=== PATIENT | female | born 1960 | race Caucasian/White ===

== ENCOUNTER 2024-02-06 15:10 | Outpatient (CLI) | payer OTHER, SELFPAY ==
--- OUTSIDE RECORDS SUMMARY | 2024-02-06 15:13 | XMS_ITS | Data Portability ---
Author Name Unknown Address [address] [place] [address] Phone [phone] Organization [place] [facility], [facility] Address [address] [place] [address] Care Team Providers Care Kiln Loader Name Role Phone DENYS CEDENO Referring Provider [phone] Assessment Encounter Date Assessment Date Assessment LastModified by Organization Details LastModified Time 07/31/2016 07/31/2016 I spent a considerable amount of time discussing the diagnoses, treatment options, risks and benefits of various treatment options, prognosis and the need for compliance. I also reviewed patients systemic health history, social and personal history and current medications and the complete documentation of the same is available for review in the patient's electronic health record. Based on the evaluation today, I do consider patient's symptoms to be consistent for a Temporomandibular joint disorder diagnosis. Contributing factors identified and discussed include oral parafunctional habits, postural factors, unilateral chewing. A panoramic radiograph was obtained in the office today and finding on the radiograph was discussed with the patient. This screening imaging revealed Bilateral TMJ advanced osteoarthritic changes. Overall, the dento-alveolar tissue appeared WNL. I reviewed some self care strategies with the patient today. This included the use of moist-heat therapy on a regular basis, eating a soft diet and chewing bilaterally simultaneously. the technique in keeping the jaw relaxed at all times with the teeth apart and tongue resting on the roof of the mouth was demonstrated and discussed. Patient was also educated on the significance of compliance to self-care today. I recommended evaluation and treatment with a physical therapist to improve pain-free range of motion and function. Physical therapy strategies of exercises and modalities and the value of those were discussed with the patient. As a part of PT, iontophoresis with Dexamethasone 4 mg/ml twice a week for three weeks will be considered. Fabrication of a Mandibular wtyf-[id number]-ewx l appliance to address patient's diagnoses would be considered as a part of the treatment plan. The goals with the use of an intra-oral appliance was discussed with the patient today. Patient will discuss this with her dentist first. Patient has significant left sided cervicalgia and this would need to be addressed along with TMD. Total visit time 50 minutes. I spent 40 minutes on counselling and co-ordination of care. Not available 07/31/2016 15:53:56 08/28/2016 08/28/2016 Symptoms are consistent with TMD diagnosis. IO improved to 37 mm without pain or noise after therapy. Patient will benefit from PT to decrease pain and increase function with eating and joint protection. Contributing factors include muscle guarding, oral habits, stress and poor posture. Treatment will include exercises to release muscle tension and increase strength and stability. Modalities to be used may include manual therapy, iontophoresis, ultrasound and electrical stimulation. Frequency will be 2x/3 weeks for ionto then 1x/1-2 weeks for 2-4 weeks, tapering as able for a total of 12-16 visits over 3 months. [email or web address] Not available 08/28/2016 17:54:25 09/02/2016 09/02/2016 Continue with al l goals. IO improved to 41 mm without pain or noise after therapy. Opening is more controlled today. Doing better due to improved awareness and joint protection. [email or web address] Not available 09/02/2016 13:36:00 09/05/2016 09/05/2016 IO improved to 4 0 mm max, 38 without pain or noise after therapy. Overall the jaw is feeling better and more stable. Good exercise compliance, will benefit from adding heat at home when she can. Continue with all goals. [email or web address] Not available 09/05/2016 10:10:12 09/09/2016 09/09/2016 IO improved to 4 1 mm max with slight L deviation, 39 without pain or deviation after therapy. Overall the jaw is feeling better and more stable. Added lateral dynamic work with the tube to improve endurance and control. Good exercise compliance and ROM improvement. [email or web address] Not available 09/10/2016 09:30:08 09/16/2016 09/16/2016 I reinforced the self-care strategies and encouraged compliance with those. I reviewed outcomes from the visits with PT. I recommended continued care with the physical therapist with focus on maintaining pain-free ROM. Patient also notices improvement in neck pain following the iontophoresis with dexamethasone for her TMD related osteoarthritis. AT the time of the follow-up visit, splint therapy may be considered. I discussed the outcomes of those visits with the rendering team provider. Total visit time 20 minutes. I spent 15 minutes on counselling and co-ordination of care. Not available 09/16/2016 15:53:39 09/16/2016 09/16/2016 Patient has met all short term goals. IO improved to 42 mm max with slight L deviation, 39 without pain or deviation after therapy. Overall the jaw is feeling better and more stable. Adjusted lateral dynamic work with the tube to improve endurance and control. Good exercise compliance and ROM improvement. 1 more ionto visit remaining, then taper therapy to 1-2 week followup. Check chin tucks next, progress postural exercises as needed. [email or web address] Not available 09/16/2016 17:46:08 10/23/2016 10/23/2016 Patient continue s to meet all short term goals and has nearly met all moth exterminator goals. Taper to independent management and D/C if she does not need to return for treatment. Function is back to normal per patient and strength and ROM is WFL. [email or web address] Not available 10/23/2016 18:17:53 Plan of Treatment Reminders Order Date Submit Date Provider Last Modified By Organization Details Last Modified Time Details Appointments None recorded. Lab None recorded. Referral physical therapist referral 2015 0[address] [facility], [address], [place], [address], 6 04:40:54 Procedures None recorded. Surgeries None recorded. Imaging XR, orthopantog ulciana 2015 016 [facility], [address], [address], [place], [address], 6 04:40:54 Medication Orders None recorded. Patient Targets Encounter Date Encounter Id Patient Goals Patient Target Last Modified By Organization Details Last Modified Time To be met in 3 weeks:? Improve patient? s awareness of muscle tension and muscle guarding habits to decrease pain? Improve patient? s awareness of neutral head, neck and jaw, position to improve posture? Improve jaw ROM to _35___mm IO without pain or deviation, with minimal noise due to decreased inflammation? Decrease pain and noise level by 50% due to improved joint protection and decreased inflammationTo be met in 3 months: ? Neutral head, neck, and jaw posture 80% of the time? Improve jaw ROM to _35-40___mm IO and __7-10___mm lateral excursion without noise or pain, with good mechanics? Decrease noise and pain level by 90% due to improved joint strength and stability? Addison with HEP and self care strategies to manage symptoms? Pain free chewing with moderately hard diet 80% of the time [email or web address] Not available 10/23/2016 09:37:41 To be met in 3 weeks:? Improve patient? s awareness of muscle tension and muscle guarding habits to decrease pain? Improve patient? s awareness of neutral head, neck and jaw, position to improve posture? Improve jaw ROM to _35___mm IO without pain or deviation, with minimal noise due to decreased inflammation? Decrease pain and noise level by 50% due to improved joint protection and decreased inflammationTo be met in 3 months: ? Neutral head, neck, and jaw posture 80% of the time? Improve jaw ROM to _35-40___mm IO and __7-10___mm lateral excursion without noise or pain, with good mechanics? Decrease noise and pain level by 90% due to improved joint strength and stability? Addison with HEP and self care strategies to manage symptoms? Pain free chewing with moderately hard diet 80% of the time [email or web address] Not available 09/16/2016 09:37:24 To be met in 3 weeks:? Improve patient? s awareness of muscle tension and muscle guarding habits to decrease pain? Improve patient? s awareness of neutral head, neck and jaw, position to improve posture? Improve jaw ROM to _35___mm IO without pain or deviation, with minimal noise due to decreased inflammation? Decrease pain and noise level by 50% due to improved joint protection and decreased inflammationTo be met in 3 months: ? Neutral head, neck, and jaw posture 80% of the time? Improve jaw ROM to _35-40___mm IO and __7-10___mm lateral excursion without noise or pain, with good mechanics? Decrease noise and pain level by 90% due to improved joint strength and stability? Addison with HEP and self care strategies to manage symptoms? Pain free chewing with moderately hard diet 80% of the time [email or web address] Not available 09/09/2016 09:33:04 To be met in 3 weeks:? Improve patient? s awareness of muscle tension and muscle guarding habits to decrease pain? Improve patient? s awareness of neutral head, neck and jaw, position to improve posture? Improve jaw ROM to _35___mm IO without pain or deviation, with minimal noise due to decreased inflammation? Decrease pain and noise level by 50% due to improved joint protection and decreased inflammationTo be met in 3 months: ? Neutral head, neck, and jaw posture 80% of the time? Improve jaw ROM to _35-40___mm IO and __7-10___mm lateral excursion without noise or pain, with good mechanics? Decrease noise and pain level by 90% due to improved joint strength and stability? Addison with HEP and self care strategies to manage symptoms? Pain free chewing with moderately hard diet 80% of the time [email or web address] Not available 09/05/2016 09:43:30 To be met in 3 weeks:? Improve patient? s awareness of muscle tension and muscle guarding habits to decrease pain? Improve patient? s awareness of neutral head, neck and jaw, position to improve posture? Improve jaw ROM to _35___mm IO without pain or deviation, with minimal noise due to decreased inflammation? Decrease pain and noise level by 50% due to improved joint protection and decreased inflammationTo be met in 3 months: ? Neutral head, neck, and jaw posture 80% of the time? Improve jaw ROM to _35-40___mm IO and __7-10___mm lateral excursion without noise or pain, with good mechanics? Decrease noise and pain level by 90% due to improved joint strength and stability? Addison with HEP and self care strategies to manage symptoms? Pain free chewing with moderately hard diet 80% of the time [email or web address] Not available 09/02/2016 09:45:09 To be met in 3 weeks:? Improve patient? s awareness of muscle tension and muscle guarding habits to decrease pain? Improve patient? s awareness of neutral head, neck and jaw, position to improve posture? Improve jaw ROM to _35___mm IO without pain or deviation, with minimal noise due to decreased inflammation? Decrease pain and noise level by 50% due to improved joint protection and decreased inflammationTo be met in 3 months: ? Neutral head, neck, and jaw posture 80% of the time? Improve jaw ROM to _35-40___mm IO and __7-10___mm lateral excursion without noise or pain, with good mechanics? Decrease noise and pain level by 90% due to improved joint strength and stability? Addison with HEP and self care strategies to manage symptoms? Pain free chewing with moderately hard diet 80% of the time [email or web address] Not available 08/29/2016 09:38:39 Patient Instructions Encounter Date Encounter Id Patient Instructions Last Modified By Organization Details Last Modified Time 10/23/2016 [id number] Plan: Continue independently, RTC as needed only. D/C PT if she doesn't return. [email or web address] Not available 10/23/2016 18:18:12 09/16/2016 [id number] Plan: One more session of ionto 80 mAmin with heat. Check exercises, mobilize jaw, check chin tuck, add cervical stretches as needed. [email or web address] Not available 09/16/2016 10:03:33 09/09/2016 [id number] Plan: Check neck next, increase to 80 mAmin with ionto. Check exercises, mobilize jaw, add #6B when able. [email or web address] Not available 09/10/2016 09:30:23 09/05/2016 [id number] Plan: Check neck next, increase to 70 mAmin with ionto. Check exercises, mobilize jaw. [email or web address] Not available 09/05/2016 09:51:53 09/02/2016 [id number] Plan: Check neck next, increase to 60 mAmin with ionto. Check exercises, mobilize jaw. [email or web address] Not available 09/02/2016 10:07:28 08/28/2016 [id number] Plan: Primary MD signature: Date: [email or web address] Not available 08/28/2016 10:10:21 07/31/2016 [id number] Self Care for TMD [id number] Not available 10/05/2016 04:40:54 Reason for Referral Referring Physician: Kenton Allen, Pain Management, Encounter Date: 07/31/2016 Results Created Date Observation Date Name Description Value Unit Range Abnormal Flag LastModifiedBy Organization Detail LastModifiedTime Result Notes None recorded. 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 Procedures Surgical History Date Name Laterality Status Provider Name and Address Organization Details Recorded Time 10/23/19 17 17051: Therapeutic Exercise completed Christel licona [facility] 10/23/2016 18:15:04 10/23/19 17 66774: Therapeutic Activities completed Christel licona [facility] 10/23/2016 18:15:15 09/16/20 16 31451: Iontophoresis completed Christel licona [facility] 09/16/2016 10:02:15 09/16/20 16 19263: Therapeutic Exercise completed Christel licona [facility] 09/16/2016 09:37:24 09/16/20 16 94961: Manual Therapy completed Christel licona [facility] 09/16/2016 09:37:24 09/09/20 16 53960: Iontophoresis completed Christel licona [facility] 09/09/2016 09:49:36 09/09/20 16 62207: Therapeutic Exercise completed Christel licona [facility] 09/09/2016 09:33:04 09/09/20 16 32818: Manual Therapy completed Christel licona [facility] 09/09/2016 09:33:04 09/05/20 16 25772: Iontophoresis completed Christel licona [facility] 09/05/2016 09:50:03 09/05/20 16 10402: Therapeutic Exercise completed Christel licona [facility] 09/05/2016 09:43:29 09/05/20 16 05974: Manual Therapy completed Christel licona [facility] 09/05/2016 09:50:07 09/02/20 16 52654: Iontophoresis completed Christel licona [facility] 09/02/2016 09:51:11 09/02/20 16 25051: Therapeutic Exercise completed Christel licona [facility] 09/02/2016 09:37:37 09/02/20 16 50373: Manual Therapy completed Christel licona [facility] 09/02/2016 13:35:11 08/28/20 16 74521: PT Evaluation completed Christel licona [facility] 08/28/2016 11:10:25 08/28/20 16 23745: Iontophoresis completed Christel licona [facility] 08/28/2016 17:50:03 08/28/20 16 51848: Therapeutic Exercise completed Christel licona [facility] 08/28/2016 10:10:23 08/28/20 16 75494: Manual Therapy completed Christel licona [facility] 08/28/2016 17:50:17 Imaging Results None recorded. Procedure Notes None recorded. Medical Equipment None Reported. Allergies No known drug allergies Medications Name Sig Start Date Stop Date Status Note LastModified by Organization Details LastModified Time amoxicillin 500 mg capsule 2015 completed Not Available Not Available Not Available hydrocodone 5 mg-acetaminop hen 325 mg tablet 2015 completed Not Available Not Available Not Available Advair Diskus 250 mcg-50 mcg/dose powder for inhalation active Not Available Not Available N ot Available ProAir HFA 90 mcg/actuation aerosol inhaler active Not Available Not Available Not Available Cyclafem (28) 0.5 mg/0.75 mg/1 mg-35 mcg tablet 2015 completed Not Available Not Available Not Available Jublia 10 % topical solution with applicator active Not Available Not Available N ot Available Vitals Date Recorded Body height Body weight Body mass index (BMI) Heart rate Systolic blood pressure Diastolic blood pressure Provider Name and Address Organization Details Last Updated DateTime 6 161.29 cm 10247.9 3 g 24.4 kg/m2 68 /min 117 mm[Hg] 72 mm[Hg] Alma licona [facility] 6 10:13:09 Date Recorded Heart rate Systolic blood pressure Diastolic blood pressure Provider Name and Address Organization Details Last Updated DateTime 07/31/2016 82 /min 132 mm[Hg] 79 mm[Hg] Janet licona [facility] 07/31/2016 10:50:40 Social History Question Answer Notes LastModified by Organizat ion Details LastModified Time Tobacco Smoking Status Never Smoker Janet licona [facility] 07/31/2016 10:35:17 What Is Your Level Of Alcohol Consumption? Occasional Information not available 07/31/2016 Auto Related Injury? No Information not available 07/31/2016 What Is Your Level Of Caffeine Consumption? Moderate Information not available 07/31/2016 Are You Currently Employed? Yes Information not available 07/31/2016 Currently No Information not available 07/31/2016 What Type Of Diet Are You Following? REGULAR Information not available 07/31/2016 Do You Reside In Or Have You Traveled To An Area Where Ebola Virus Transmission Is Active? 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 (0=no Pain, 10=pain As Bad As You Can Imagine) 1 Information not available 07/31/2016 How Did Primary Problem Begin? Eating/large Bite Information not available 07/31/2016 How Many Children Do You Have? 3 Information not available 07/31/2016 General Stress Level Low Information not available 07/31/2016 Do You Use Any Illicit Or Recreational Drugs? No Information not available 07/31/2016 Work Related Injury? No Information not available 07/31/2016 Sex: Female Functional Status Question Answer Note LastModified by Organizat ion Details LastModified Time What is your exercise level? Occasional Information not available 07/31/2016 Mental Status None recorded. Family History Relationship Description Onset Age of this Age Resolved Age Notes Mother Arthritis Father Heart disease Medical History Condition Response Coronary Artery Disease N Other N Gout N MRSA N Head Trauma/Injury N Lung Disease N Glaucoma N Depression N COPD N Pneumonia N Pacemaker N Obstructive Sleep Apnea N Anxiety Disorder N Muscle, Joint, or Bone Problems N Autoimmune disease N Vision or Eye Problems N Arthritis N Acid Reflux (GERD) N Cancer N Stroke N Back Injury N High Cholesterol N Liver Disease N Organ Transplant N Rheumatoid Arthritis N Headaches N Fibromyalgia N Kidney Disease N Allergies/Hayfever N Post traumatic stress disorder (PTSD) N Parkinson's Disease N Migraines N Brain Tumors N Anemia N Multiple Sclerosis N Heart Attack ([place]) N Stomach Ulcers N Diabetes N Bleeding Disorder N Seizures/Epilepsy N Tuberculosis N AIDS/HIV N Dementia N Asthma N Substance Abuse N Vertigo N Sleep Disorder N Hepatitis N Neuropathy N Heart Disease N Pulmonary Embolism N Hypertension N Osteoporosis N Gynecological HistoryNo gynecological history recorded. Obstetrics History GPAL:G 0 P 0 0 0 0 Past Encounters Encounter ID Performer Location Encounter Start Date Encounter Closed Date Diagnosis/Indication Diagnosis SNOMED-CT Code [id number] Florence Mane [facility] [address] [place] [id number] 07/31/2016 10:12:52 08/02/2016 00:41:35 Arthralgia of temporomandibular joint 67321653 Articular disc disorder of temporomandibular joint 09743472 Myofascial pain 03501518 9 Neck pain 35535354 [id number] Christel Tobinmat [place] [address] [address] 08/28/2016 10:07:29 08/29/2016 12:11:19 Arthralgia of temporomandibular joint 45283668 Myofascial pain 31911089 9 Articular disc disorder of temporomandibular joint 72646725 Neck pain 61884489 [id number] Christel Villa [place] [address] [place] [id number] 09/02/2016 09:25:29 09/03/2016 10:09:08 Arthralgia of temporomandibular joint 79787561 Myofascial pain 29914968 9 Articular disc disorder of temporomandibular joint 59720208 Neck pain 65007684 [id number] Christel Allen [place] [address] [address] 09/05/2016 09:18:04 09/06/2016 09:48:12 Articular disc disorder of temporomandibular joint 44467065 Neck pain 79598140 Myofascial pain 39717368 9 Arthralgia of temporomandibular joint 36196226 [id number] Christel Tobinmat [place] [address] [place] [id number] 09/09/2016 09:21:24 09/11/2016 09:51:15 Articular disc disorder of temporomandibular joint 81452290 Neck pain 92121881 Myofascial pain 99301263 9 Arthralgia of temporomandibular joint 37214312 [id number] Christel Allen [place] [address] [address] 09/16/2016 09:24:44 09/17/2016 10:49:42 Articular disc disorder of temporomandibular joint 32014266 Neck pain 22474411 Myofascial pain 46510034 9 Arthralgia of temporomandibular joint 18819400 [id number] Florence Gilliam [facility] [address] [place] [address] 09/16/2016 10:01:46 09/17/2016 09:43:56 Myofascial pain 652200170 Neck pain 68263541 Arthralgia of temporomandibular joint 21154640 Articular disc disorder of temporomandibular joint 75307454 [id number] Christel Allen [facility] [address] [place] [address] 10/23/2016 09:35:02 10/24/2016 15:17:07 Arthralgia of temporomandibular joint 92016610 Myofascial pain 69994915 9 Articular disc disorder of temporomandibular joint 52184604 Neck pain 27697919 Health Concerns Section Related Observation LastModified by Organization Detai ls LastModified Time None Recorded Concern Status LastModified by Organization Details LastModified Time None Recorded Advance Directives Directive None Recorded Payers Encounter Date Sequence Insurance Name Policy Number Policy Albarado Covered Member ID Albarado Member ID Guarantor Name 10/23/2016 1 [place] [id number] Bhavin F Strike [id number] [employer]ak[employer] Strike 09/16/2016 1 [place] [id number] Bhavin F Strike [id number] Bhakti Strike 09/16/2016 1 [place] [id number] Bhavin F Strike [id number] Bhakti Strike 09/09/2016 1 [place] [id number] Bhavin F Strike [id number] Bhakti Strike 09/05/2016 1 [place] [id number] Bhavin F Strike [id number] Bhakti Strike 09/02/2016 1 [place] [id number] Bhavin Quick Strike [id number] Bhakti Strike 08/28/2016 1 [place] [id number] Bhavin Quick Strike [id number] Bhakti Strike 07/31/2016 1 [place] [id number] Bhavin Quick Strike [id number] Bhakti Strike Notes Date Note Type Note Provider Name and Address Organization Details Recorded Time 07/31/2016 text/html HPI Notes: Lina parikh reports jaw pain on the left-side , which startedmonths ago. The pain is located in the pre-auricular region. Patient reports the severity of pain as 0-3 on a scale of 0-10 and describes the quality of the pain assharp when yawning. The pain is intermittent. Associated symptoms include deviates as she yawns. Contextual factors include nothing. Aggravating factors include yawning. Patient has tried OTC medications to alleviate symptoms, which has been effective. Past treatment includes physical therapy. BINDU Patel DDS - [facility] 07/31/2016 15:56:10 08/28/2016 text/html HPI Notes: Has h ad jaw discomfort for the past 6-9 months - had pain 6 years ago with trying to open for a sub sandwich which she had managed with some exercises. Over this past summer started having difficulty with eating and yawning again. Has a small jaw to begin with. Now has sharp, brief pain and crunching with opening and yawning. Pain is in the L masseter area. Doesn't notice clenching, no grinding at night. Is aware of chewing on cheeks, more recently - is noticing an increase in accidental cheek biting. Tongue is in the middle, is trying to keep it up and keep her alignment straight. Side and back sleeping. Has some neck tension at times - is working on stretching. Has been avoiding big foods, otherwise isn't having difficulty with chewing certain food. Stress is mostly low and doesn't seem to be a factor. Exercises regularly using elliptical, walking dog. Enjoys reading. Panorex shows advanced B degenerative OA changes of the TMJ condyles. BINDU Rico [facility] 08/29/2016 09:39:11 09/02/2016 text/html HPI Notes: Has n ot had a chance to do heat - ABBE had a stroke and last week the day of the PT eval, has been out of town since. Has been focusing on protecting opening, keeping the tongue up, minimizing extra lateral movements. Feels much more aware of the jaw wanting to slip to either side or forward. Hasn't had much pain. Opening still feels tight. Christel licona [facility] 09/02/2016 13:37:06 09/05/2016 text/html HPI Notes: Has d one the TD, no heat (no microwave). Noticing that doing the knuckle stretches will strain the jaw slightly when she's trying to pull them out - has some difficulty closing the jaw right away until it relaxes. It's not as difficult to pull the sticks out. Jaw does feel better and more stable overall, though the opening doesn't feel too much farther yet. Christel licona [facility] 09/05/2016 10:10:24 09/09/2016 text/html HPI Notes: Has h ad heat again now as of yesterday. No pain, still having tightness though it seems less tight overall. The lateral resistance exercise seems to have helped improve the balance side to side. Protecting yawning. Christel licona [facility] 09/10/2016 09:31:01 09/16/2016 text/html HPI Notes: Traveling over [facility], had a on Friday. Doing the exercises as much as possible. Can't do tube ex. without hearing noise instantly. 65-70% overall improvement. Still having soreness with eating chewy foods. No difficulty with opening wide. Discomfort/hesitati on with yawning. Neck is feeling less tight. Christel licona [facility] 09/16/2016 17:46:48 09/16/2016 text/html HPI Notes: Patie nt reports jaw pain on the left-side , which startedmonths ago. The pain is located in the pre-auricular region. Patient reports the severity of pain as 0-3 on a scale of 0-10 and describes the quality of the pain assharp when yawning. The pain is intermittent. Associated symptoms include jaw joint noises. Contextual factors include nothing. Aggravating factors include yawning. Patient has tried OTC medications to alleviate symptoms, which has been effective. Past treatment includes physical therapy.Patient states her symptoms are improving. Patient denies any locking. BINDU Patel DDS [facility] 09/16/2016 15:53:52 10/23/2016 text/html HPI Notes: Has noticed that doing chin tucks has made a big difference. Feels she is catching her posture all the time and is maintaining a good head over neck posture. With yawning she still has a little discomfort and noise but most of the time she can get a full yawn in. Eating is much better - no pain. Neck tightness seems better. Feeling 80-85% better. Feels that awareness is the most important factor. Still does some exercises; feeling ready to continue independently. BINDU Rico - [facility] 10/23/2016 18:18:42 OBGyn Episode No OBEpisode recorded.
--- OUTSIDE RECORDS SUMMARY | 2024-02-06 15:13 | XMS_ITS | Clinical Summary ---
Author Name Unknown Organization [facility] Address [address] [place] [address] Care Team Providers Care Metal Cans Supervisor Name Role Phone Rosaura Su PA-C Primary Care Provider Un available Source Comments You are receiving this document as you are listed as the primary care provider,follow-up provider, or the patient has been referred to you for consultation.This is in compliance with the Medicare and[facility] EHR Incentive Program,which states Providers who transition their patient to another setting of careor provider of care or refers their patient to another provider of care shouldprovide summary care record for each transition of care or referral. 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 Overview: Melanoma in situ, left shoulder, s/p shave 10/27/2018, s/p reexcision 11/2018 History of nonmelanoma skin cancer 2021 Overview: Per patient, history of a few NMSCs: BCC, left forehead, 05/2019, by Mary Velzaquez PA-C BCC, right buddhist, 2017 BCC, right upper chest, 10/27/2018 BCC, left upper chest, 10/27/2018 Social History Tobacco Use Types Packs/Day Years Used Date Smoking Tobacco: Never Assessed Sex and Gender Information Value Date Recorded Sex Assigned at Not on file Gender Identity Not on file Sexual Orientation Not on file Plan of Treatment Health Maintenance Due Date Last Done Comments Cervical Cancer Screening Due 1962 Colon Cancer Screening Plan Due 1962 Hep C Screening (Preventive Services) 1962 HIV Screening (Preventive Services) 1978 Adult Preventive Visit 1980 Cholesterol 2007 Mammogram 08/27/2022 08/27/2021 COVID-19 Vaccine ( season) 2023 02/13/2021, 01/23/2021 Influenza (#1) 2023 08/16/2020, 09/20, 09/03/2008, Additional history exists DTaP/Tdap/Td (3 - Tdap) 06/24/2028 06/24/2018, 09/22 Zoster/Shingles Completed 12/06/2019, 07/02/2019 HepA Aged Out No longer eligi ble based on patient's age to complete this topic HepB Aged Out No longer eligi ble based on patient's age to complete this topic Hib Aged Out No longer eligi ble based on patient's age to complete this topic IPV (Polio) Aged Out No longer eligi ble based on patient's age to complete this topic MCV4 Aged Out No longer eligi ble based on patient's age to complete this topic Pneumococcal Aged Out No longer eligi ble based on patient's age to complete this topic Procedures Procedure Name Priority Date/Time Associated Diagnosis Comments RADEX FNGR MINIMUM 2 VIEWS 04/27/1996 12:00 AM CDT Finger Injury Nos Fx Phalanx, Hand Nos-Close from Last 3 Months or Most Recently Relevant to Health Maintenance Care Teams Metal Cans Supervisor Relationship Specialty Start Date End Date Rosaura Su PA-C PCP - General Physician Teaching Fellow 05/01/21
--- OUTSIDE RECORDS SUMMARY | 2024-02-06 15:13 | XMS_ITS | Continuity of Care Document ---
Author Name [facility] Organization [facility] Care Team Providers Care Senior Bookkeeper Name Role Phone [facility] Unavailable Unavailable Medications Combined list of outpatient medications from Department of Defense and Veterans Affairs facilities.Medications provided include 1) outpatient medications from the last 15 months, and 2) patient-reported medications. Medication Details Route Status Patient Instructions Prescription Expires Prescription Number Last Dispense Date Ordering Provider Order Date Order Qty Source ALBUTEROL SULFATE HFA (albuterol sulfate), 90 MCG, HFA AER AD, INHALATION, TEVA [place], 8.5 g CANISTER Active [id number] 2023 17 Pharmac y Data Transac tion Service Facilit y WIXELA INHUB (fluticason e propionate/ salmeterol xinafoate), 250-50 MCG, BLST W/DEV, INHALATION, MYLAN, 60 ea. BLIST PACK Active [id number] 4 2023 180 Pharmac y Data Transac tion Service Facilit y WIXELA INHUB (fluticason e propionate/ salmeterol xinafoate), 250-50 MCG, BLST W/DEV, INHALATION, MYLAN, 60 ea. BLIST PACK Active [id number] 4 2023 180 Pharmac y Data Transac tion Service Facilit y WIXELA INHUB (fluticason e propionate/ salmeterol xinafoate), 250-50 MCG, BLST W/DEV, INHALATION, MYLAN, 60 ea. BLIST PACK Active [id number] 3 2022 60 Pharmac y Data Transac tion Service Facilit y Social History Combined list of available smoking, tobacco, and other social history from Department of Defense and Veterans Affairs facilities. Social History Type Response Date Comment Sourc e This section is an empty social history section. [employer]
--- OUTSIDE RECORDS SUMMARY | 2024-02-06 15:13 | XMS_ITS | Clinical Summary ---
Author Name Unknown Organization [facility] Address [place], [place] [address] Care Team Providers Care Arranger Assembler Name Role Phone Dora Oconnor DO Primary Care Provider [phone] Allergies No known active allergies Medications Medication Sig Dispensed Refills Start Date End Date Status multivitamin (MVI) tablet Take 1 Tablet by mouth once daily. 11/13/2023 Active albuterol HFA (ProAir HFA) 90 mcg/actuation inhalerIndications:Mod erate persistent asthma without complication Inhale 2 Puffs by mouth 4 times daily if needed for Shortness Of Breath or Wheezing. 18 g 11 11/13/2023 Active fluticasone propion-salmeteroL (Advair Diskus) 250-50 mcg/Dose diskus inhalerIndications:Mod erate persistent asthma without complication Inhale 1 Puff by mouth two times daily. 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 Overview: Melanoma in situ, left shoulder, s/p shave 10/27/2018, s/p reexcision 11/2018 History of nonmelanoma skin cancer 2021 Overview: Per patient, history of a few NMSCs: BCC, left forehead, 05/2019, by Mary Velazquez PA-C BCC, right alevism, 2017 BCC, right upper chest, 10/27/2018 BCC, left upper chest, 10/27/2018 Skin cancer 08/18/2018 Overview: 06/08/19 left forehead, nBCC, [facility] Renetta 09/06/19 08/13/18 right upper chest, s/n BCC ED&C treated 12/08/18 Mary Velazquez PA-C 08/13/18 left upper chest, s/n BCC, ED&C treated 12/08/18 Mary Velazquez PA-C 08/13/18 right alevism, nBCC, [facility] 11/24/18 Elliott Jackson MD Routine adult health maintenance 12/02/2014 Overview: Colonoscopy 11/2014 diverticulosis repeat in 10 years Vitamin D deficiency 04/08/2012 Unspecified asthma(493.90) 09/22/2007 Overview: Allergy induced, animal allergy Encounters Date Type Department Care Team Description 11/13/2023 9:10 AM ELEMENTARY SPANISH TEACHER Office Visit [facility] [address] [place] [address] Janet Pedersen PA Physical (Annual exam no pap) 11/13/2023 Travel from Last 3 Months Immunizations Name Administration Dates Next Due AMB Influenza, IIV4 PF (=>6 mos Flulaval,Fluzone Fluarix)(Flu Clinic Only) 08/16/2020 COVID-19 vaccine (MailTime NTCueSongs 30mcg/0.3mL) PF, MDV 02/13/2021,01/23/2021 Influenza, IIV3 (Age >=3 years) 09/03/20 08,09/22/2007,09/10/2006,2004,08/10/2004 Influenza, IIV4 10/09/2015 Pneumococcal Conj 20-valent (Prevnar 20) 05/29/2022 Tdap 06/24/2018,09/22/2007 Zoster (Shingrix-RZV, recombinant) 12/06/2019, Family History Medical History Relation Name Comments No Known Problems Daughter Other Father ulcerative coli tis Psychiatric illness Father Depressi on-- later in life Skin cancer Father Heart Disease Maternal Grandmother Stroke Maternal Grandmother Cancer-breast Mother 09-27-08 Tosin ctomy, age 71 Migraines Mother hx of Asthma Sister No Known Problems Son 1 No Known Problems Son 2 Cancer-ovarian No Family History Relation Name Status Comments Daughter Alive Father (Age 83) Maternal Grandmother Mother Alive Sister Alive Son 1 Alive Son 2 Alive Social History Tobacco Use Types Packs/Day Years Used Date Smoking Tobacco: Never Smokeless Tobacco: Never Tobacco Cessation:Counseling Given: Yes Alcohol Use Standard Drinks/Week Comments Yes 0 (1 standard drink = 0.6 oz pur e alcohol) wine occasionally PHQ-2 Answer Date Recorded PHQ-2 TOTAL SCORE 0 11/13/2023 Social Connections Answer Date Recorded Frequency of Communication with Friends and Fami ly Not on file 10/20/2021 Financial Resource Strain Answer Date R ecorded Difficulty of Paying Living Expenses Not on file 10/20/2021 Difficulty of Paying Living Expenses Not on file 10/20/2021 Sex and Gender Information Value Date Recorded Sex Assigned at Not on file Gender Identity Not on file Sexual Orientation Not on file Obstetrics History Para Term AB IAB SAB Ectopic Multiple Livin g Live Births 3 3 3 3 Date Outcome GA Total Labor Labor/2nd/3rd Weight Sex Delivery Anes PTL Sparkle A1 A5 Name Cl in Term Term Term Last Filed Vital Signs Vital Sign Reading Time Taken Comments Blood Pressure 151/82 11/13/2023 9:23 AM ELEMENTARY SPANISH TEACHER Pulse 77 11/13/2023 9:23 AM ELEMENTARY SPANISH TEACHER Temperature 36.5 ??C (97.7 ??F) 07/02/2019 8:20 AM CD T Respiratory Rate - - Oxygen Saturation 100% 11/13/2023 9:23 AM ELEMENTARY SPANISH TEACHER Inhaled Oxygen Concentration - - Weight 69.4 kg (153 lb) 11/13/2023 9:23 AM ELEMENTARY SPANISH TEACHER Height 160.1 cm (5' 3.03) 11/13/2023 9:23 AM CS T Body Mass Index 27.08 11/13/2023 9:23 AM ELEMENTARY SPANISH TEACHER Plan of Treatment Upcoming Encounters Date Type Department Care Team (Late st Contact Info) Description 02/11/2024 9:40 AM CDT Office Visit [facility] [address] [place] [address] [place] [address] Lynette Lee MD [address] [facility] [address] [place] [address] Health Maintenance Due Date Last Done Comments HIV for age 15-65 1977 COVID-19 vaccine series (2022- season) 2023 03/22/2022, 02/13/2021, 01/23/2021 Mammogram for age 45-75 05/29/2024 05/29/20 23, 08/27/2021, 08/21/2020, Additional history exists Influenza for age 50-64 06/20/2024 08/16/20 20, 10/09/2015, 09/03/2008, Additional history exists BMI (ht and wt on same day) for age 18+ 11/13/2024 11/13/2023, 05/29/2022, 02/23/2021, Additional history exists Depression screening for age 12+ 11/13/2024 11/13/2023, 12/20/2020, 07/02/2019, Additional history exists Colonoscopy through age 75 12/02/2024 12/02/2014, Pap test for age 21-65 12/20/2025 , 12/20/2020, 01/29/2017, Additional history exists Tetanus booster 06/24/2028 06/24/2018, 09/22/2007 Lipids for age 45-75 11/13/2028 11/13/2023, 12/20/2020, 07/02/2019, Additional history exists Tdap Completed 06/24/2018, 09/22/2007 Hepatitis C screening for ag e 18-79 Completed 07/02/2019 Zoster (shingles) series for age 50+ Completed 12/06/2019, 07/02/2019 Pneumococcal series for age 6-64 Completed 05/29/20 22 Procedures Procedure Name Priority Date/Time Associated Diagnosis Comments ABORH TYPE Routine 11/13/2023 10:21 AM ELEMENTARY SPANISH TEACHER Annual physical exam HEMOGLOBIN A1C SCREENING Routine 11/13/2023 10:21 AM ELEMENTARY SPANISH TEACHER Screening for diabetes mellitus COMP METABOLIC PANEL Routine 11/13/2023 10:21 AM ELEMENTARY SPANISH TEACHER Screening for diabetes mellitus LIPID PANEL W REFLEX MEASURED LDL Routine 11/13/2023 10:21 AM ELEMENTARY SPANISH TEACHER Screening for lipid disorders XR MAMMO MADDY BILAT SCREEN Routine 05/29/2023 11:43 AM CDT Encounter for screening mammogram for malignant neoplasm of breast UPHOLSTERY DEPARTMENT SUPERVISOR THIN PREP PAP SCREEN IMAGED Routine 12/20/2020 10:17 AM ELEMENTARY SPANISH TEACHER Pap smear for cervical cancer screening ANTI HCV Routine 07/02/2019 9:23 AM CDT Need for hepatitis C screening test from Last 3 Months or Most Recently Relevant to Health Maintenance Results * HEMOGLOBIN A1C SCREENING (11/13/2023 10:21 AM ELEMENTARY SPANISH TEACHER) HEMOGLOBIN A1C SCREENING 5.5 <=6.4 % 11/13/2023 5:29 PM ELEMENTARY SPANISH TEACHER [facility] Accurate Group [facility] Blood BLOOD SPECIMEN / Unknown Venipuncture / Unknown 11/13/2023 10:21 AM ELEMENTARY SPANISH TEACHER 11/13/2023 10:23 AM ELEMENTARY SPANISH TEACHER Narrative [facility] - 11/13/2023 5:29 PM ELEMENTARY SPANISH TEACHER ? (<5.7%) ?Normal ? (5.7% to 6.4%) ? Indicates prediabetes ? (>=6.5%) ? Confirms diabetes Falsely low levels may be seen with: Recent Transfusion, Recent Significant Blood Loss, Hemolytic Diseases, or Falsely elevated levels may be seen with: Untreated Anemias, Splenectomy Janet JOVEL CHEMISTRY [facility] [address] [place] [address], * (ABNORMAL) LIPID PANEL W REFLEX MEASURED LDL (11/13/2023 10:21 AM ELEMENTARY SPANISH TEACHER) CHOLESTEROL,TOTAL 251(H) 100 - 199 mg/dL 11/13/2023 9:55 PM ELEMENTARY SPANISH TEACHER [facility] Comment: Cholesterol, Total Reference Ranges Desirable <200 mg/dL Borderline 200-239 mg/dL High >=240 mg/dL TRIGLYCERIDES 55 <150 mg/dL 11/13/2023 9:55 PM ELEMENTARY SPANISH TEACHER [facility] HDL CHOLESTEROL 111 >40 mg/dL 9:55 PM ELEMENTARY SPANISH TEACHER [facility] NON-HDL CHOLESTEROL 140 <145 mg/dl 11/13/2023 9:55 PM ELEMENTARY SPANISH TEACHER [facility] CHOL/HDL RATIO 2.26 <4.50 11/13/2023 9:55 PM ELEMENTARY SPANISH TEACHER [facility] LDL CHOLESTEROL 129 <=130 mg/dL 11/13/2023 9:55 PM ELEMENTARY SPANISH TEACHER [facility] VLDL CHOLESTEROL 11 <=30 mg/dL 11/13/2023 9:55 PM ELEMENTARY SPANISH TEACHER [facility] PROVIDER ORDERED STATUS RANDOM 11/13/2023 9:55 PM ELEMENTARY SPANISH TEACHER [facility] Blood BLOOD SPECIMEN / Unknown Venipuncture / Unknown 11/13/2023 10:21 AM ELEMENTARY SPANISH TEACHER 11/13/2023 10:23 AM ELEMENTARY SPANISH TEACHER Janet JOVEL CHEMISTRY [facility] [address] [place] [address], * ABORH TYPE (11/13/2023 10:21 AM ELEMENTARY SPANISH TEACHER) ABORH O Rh Positive 11/13/2023 6:31 PM ELEMENTARY SPANISH TEACHER [facility] [employer]AL [facility] BLOOD BANK Blood BLOOD SPECIMEN / Unknown Venipuncture / Unknown 11/13/2023 10:21 AM ELEMENTARY SPANISH TEACHER 11/13/2023 10:23 AM ELEMENTARY SPANISH TEACHER Janet JOVEL BLOOD BANK [facility] [employer]OD [facility] [address] [place] [address], * (ABNORMAL) COMP METABOLIC PANEL (11/13/2023 10:21 AM [facility]) SODIUM 142 136 - 145 mmol/L 11/13/2023 9:55 PM [facility] POTASSIUM 5.0 3.5 - 5.1 mmol/L 11/13/2023 9:55 PM [facility] CHLORIDE 103 98 - 107 mmol/L 11/13/2023 9:55 PM [facility] CO2,TOTAL 27 22 - 29 mmol/L 11/13/2023 9:55 PM [facility] ANION GAP 12 5 - 18 11/13/2023 9:55 PM [facility] GLUCOSE 97 70 - 99 mg/dL 11/13/2023 9:55 PM [facility] CALCIUM 10.2 8.8 - 10.2 mg/dL 11/13/2023 9:55 PM [facility] BUN 16 8 - 23 mg/dL 11/13/2023 9:55 PM [facility] CREATININE 0.71 0.50 - 0.90 mg/dL 11/13/2023 9:55 PM [facility] BUN/CREAT RATIO 23(H) 10 - 20 9:55 PM [facility] eGFR >90 >90 mL/min/1.7 3m2 11/13/2023 9:55 PM [facility] Comment:As of 2022, eG FR is calculated by the CKD-EPI creatinine equation without race adjustment. ??eGFR can be influenced by muscle mass, exercise, and diet. ??The reported eGFR is an estimation only and is only applicable if the renal function is stable. ALBUMIN 5.0(H) 4.0 - 4.9 g/dL 11/13/2023 9:55 PM [facility] PROTEIN,TOTAL 7.0 6.0 - 8.0 g/dL 11/13/2023 9:55 PM [facility] BILIRUBIN,TOTAL 0.5 0.0 - 1.2 mg/dL 11/13/2023 9:55 PM ELEMENTARY SPANISH TEACHER [facility] ALK PHOSPHATASE 60 35 - 104 IU/L 11/13/2023 9:55 PM ELEMENTARY SPANISH TEACHER [facility] ALT (SGPT) 22 10 - 35 IU/L 11/13/2023 9:55 PM ELEMENTARY SPANISH TEACHER [facility] AST (SGOT) 22 10 - 35 IU/L 11/13/2023 9:55 PM ELEMENTARY SPANISH TEACHER [facility] Blood BLOOD SPECIMEN / Unknown Venipuncture / Unknown 11/13/2023 10:21 AM ELEMENTARY SPANISH TEACHER 11/13/2023 10:23 AM ELEMENTARY SPANISH TEACHER Janet JOVEL CHEMISTRY [facility] [address] [place] [address], [place] * XR MAMMO MADDY BILAT SCREEN (05/29/2023 11:43 AM CDT) Anatomical Region Laterality Modality BREASTS, Breast Left, Breast Right Bilateral Mammography Impressions 05/29/2023 3:08 PM CDT ??There is no radiographic evidence for malignancy. ??Recommend annual mammograms. MAMMOGRAM ASSESSMENT: ??ACR 1 Negative PATIENTS: You will also receive a letter with your examination results in an easy to read format. ??If you have questions about your results, please contact your referring provider. Narrative 05/29/2023 3:08 PM CDT For Patients: As a result of the 21st Century Cures Act, medical imaging exams and procedure reports are released immediately into your electronic medical record. You may view this report before your referring provider. If you have questions, please contact your health care provider. XR MAMMO MADDY BILAT SCREEN [[id number]] CLINICAL HISTORY: ??This is an asymptomatic 63 y.o. patient. INDICATION FOR EXAM: Mammogram Screening. TECHNIQUE: CC & MLO views were obtained. ??This study was evaluated with the assistance of Computer-Aided Detection. Breast Tomosynthesis was used in interpretation. COMPARISON FILM: Yes 08/27/21 [employer] 08/21/20 [facility] FINDINGS: ??The breasts have scattered areas of fibroglandular density. There are no dominant masses, suspicious micro calcifications or areas of architectural distortion. Dora Ocononr DO MAMMO * UPHOLSTERY DEPARTMENT SUPERVISOR THIN PREP PAP SCREEN IMAGED (12/20/2020 10:17 AM ELEMENTARY SPANISH TEACHER) Case Report Gynecologic Cytology Report ? Case: [id number] ? Authorizing Provider: ??Rosaura Su, ??Collected: ? 12/20/2020 1017 ? PA ? Ordering Location: ? [facility] ?? Received: ?12/20/2020 1049 ? Clinic ? First Screen: ?Nii Hawthorne ? Specimen: ?UPHOLSTERY DEPARTMENT SUPERVISOR ThinPrep Vial Screening, Cervical ? 12/27/2020 3:06 PM ELEMENTARY SPANISH TEACHER [facility] INTERPRETATION/ RESULT NEGATIVE FOR INTRAEPITHELIAL LESION OR MALIGNANCY (NIL) (none) 12/27/2020 3:06 PM ELEMENTARY SPANISH TEACHER [facility] IMEN ADEQUACY Satisfactory for evaluation Endocervical component present Scant cellularity 12/27/2020 3:06 PM ELEMENTARY SPANISH TEACHER [facility] HPV REQUEST HPV and PAP 12/27/2020 3:06 PM ELEMENTARY SPANISH TEACHER [facility] Date of LMP postmenopausal 3:06 PM ELEMENTARY SPANISH TEACHER [facility] Last Pap Date 01/29/17 12/27/2020 3:06 PM ELEMENTARY SPANISH TEACHER [facility] Last Pap Result First Pap/Unknown 3:06 PM ELEMENTARY SPANISH TEACHER [facility] Abnormal Pap or [place] Bx in last 5 years No 12/27/2020 3:06 PM ELEMENTARY SPANISH TEACHER [facility] Menstrual Status Postmenopausal 12/27/2020 3:06 PM ELEMENTARY SPANISH TEACHER [facility] [place] Bx Done Today No 12/27/2020 3:06 PM ELEMENTARY SPANISH TEACHER [facility] Additional Information None given 12/27/2020 3:06 PM ELEMENTARY SPANISH TEACHER [facility] Comment: Cytology is screened at [facility], Central Laboratory - [address], [place] [address] and [facility] - [address] [place] [address], [place] [address] and [facility] - [address] [place] [address] Interpreted at [facility] - [address] [place] [address], [place] [address] Automated Review Successful 12/27/2020 3:06 PM [facility] Comment:Specimen processed s uccessfully by automated rn intern device, ThinPrep Imaging System, [employer] ANCILLARY TESTING UPHOLSTERY DEPARTMENT SUPERVISOR HPV Ordered, Please see separate report 12/27/2020 3:06 PM [facility] Note The pap test is a screening technique, not a diagnostic procedure. It is used primarily to screen for squamous cancers and precursor lesions. Published studies have shown that it is subject to both false negative and false positive results. The pap test should not be used as the sole means to diagnose or exclude pre-malignant and malignant lesions. 12/27/2020 3:06 PM [facility] Other (Cervical) Non-Blood / Unknown 12/20/2020 10:17 AM ELEMENTARY SPANISH TEACHER 12/20/2020 10:49 AM ELEMENTARY SPANISH TEACHER Rosaura JOVEL PATHOLOGY/CYT OLOGY Performing Organization Address City/[facility]/ZIP Co de Phone Number [facility] [address] [place] [address], [place] * ANTI HCV (07/02/2019 9:23 AM CDT) HEPATITIS C ANTIBODY Non-React arpan Non-React arpan 07/02/2019 6:13 PM CDT [facility] Comment:Antibodies to HCV no t detected; does not exclude the possibility of exposure to HCV. Blood BLOOD SPECIMEN / Unknown Venipuncture / Unknown 07/02/2019 9:23 AM CDT 07/02/2019 9:23 AM CDT Rosaura JOVEL SEND OUTS [facility] [address] [place] [address], from Last 3 Months or Most Recently Relevant to Health Maintenance Care Teams Arranger Assembler Relationship Specialty Start Date End Date Dora Oconnor DO [address] [place] [address] PCP - General Family Practice 05/29/22
--- NOTE | 2024-02-06 15:30 | MR_ITS ---
[facility] [address] [facility] [address] Phone:?[phone] Fax:?[phone] Referring Physician Information: ePtr Edmond M.D. [address] [place] [address] Phone:?[phone] Fax:?[phone] Patient:?Bhakti Cleveland D.O.B:?1960 Sex:?Female Phone:?[phone] [facility] MRN:?[id number] Exam Date:?02/06/2024 EXAM: MRI of the RIGHT KNEE, without contrast CLINICAL INFORMATION: Female, 63 years old, with right knee pain. INDICATION: Evaluate for ligament injury. PRIOR SURGERY: None reported. PLAIN FILMS: Knee radiograph dated 01/22/2024. COMPARISONS: No prior MRIs available. TECHNICAL INFORMATION: Using a 1.5T MR scanner and a localizing surface coil: sagittals: PD, PDFS coronals: PD, T2FS axials: PD, PDFS SEDATION: None CONTRAST: None FINDINGS: Knee joint: Effusion: Trace -small right knee effusion. Popliteal cyst: Tiny, unruptured popliteal (New's) cyst. Loose bodies: None. Subcutaneous and extra-articular soft tissues: A large fluid collection is present throughout the anterior aspect of the knee measuring 11.6 x 1.1 x 13.1 cm (axial T2FS series 4 image 14 and sagittal PDFS series 6 image 16). The superior extent of this collection is not visualized on this study. Ligaments: ACL: Intact ACL anteromedial and posterolateral bundles, without sprain or tear. PCL: Intact PCL, without acute or chronic injury. MCL: Intact MCL superficial and deep layers, without injury. LCL: Intact LCL, without injury. Posterolateral corner: Mild popliteus tendinopathy without tear. Biceps femoris, iliotibial band, popliteofibular ligament and lateral gastrocnemius are intact. Posteromedial corner: No posteromedial corner soft tissue injury. Semimembranosus, pes anserine tendons and posterior oblique ligament are without injury, tendinopathy or bursitis. Extensor mechanism: Patellar tendon: Intact, without tendinopathy. Quadriceps tendon: Intact, without tendinopathy. Retinacula: Medial and lateral retinacula are intact. Fat pads: Unremarkable infrapatellar Hoffa's, quadriceps and prefemoral fat pads. Medial compartment: Medial meniscus: No articular surface, meniscosynovial junction or root tear. No displacement, extrusion or parameniscal cyst. Medial femoral condyle: No chondromalacia or osteochondral abnormality. Medial tibial plateau: No chondromalacia or osteochondral abnormality. Lateral compartment: Lateral meniscus: Focal apical free edge tearing of the lateral meniscal body is present over a length of 4 mm (coronal STIR series 8 image 21 and axial T2FS series 4 image 19). No extrusion or parameniscal cyst. Lateral femoral condyle: No chondromalacia or osteochondral abnormality. Lateral tibial plateau: No chondromalacia or osteochondral abnormality. 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 Trochlea: Broad-based grade II chondromalacia of the medial facet and central sulcus, with minimal marginal osteophytosis. Proximal tibiofibular joint: Unremarkable, without evidence of ligament sprain injury, joint effusion or adjacent marrow edema. Bones: No stress/occult fractures or other marrow edema/pathology. IMPRESSION: 1. Large fluid collection throughout the anterior aspect of the knee measuring 11.6 x 1.1 x 13.1 cm, which may reflect a hematoma or Anthony Hilaria lesion. 2. Focal apical free edge tearing of the lateral meniscal body segment measuring 4 mm. No other medial or lateral meniscal tear. 3. Mild osteoarthritis of the patellofemoral compartment, medially. 4. Trace-small knee joint effusion with a tiny, unruptured popliteal (New's) cyst. 5. No cruciate or collateral ligament sprain/tear. 6. No osteochondral abnormality of the medial or lateral compartment. BC Electronically signed on 02/09/2024 6:56:00 AM by Rafael Vázquez M.D.
== END 2024-02-06 15:11 | disposition home or self-care (01) ==
PROVIDERS: PCP Physician Assistant; Visit Provider Orthopaedic Surgery
DX: M25.561 Pain in right knee (principal); S83.281A Other tear of lateral meniscus, current injury, right knee, initial encounter; M17.11 Unilateral primary osteoarthritis, right knee; M25.461 Effusion, right knee; S89.90XA Unspecified injury of unspecified lower leg, initial encounter
CPT/HCPCS: 73721

== ENCOUNTER 2024-02-24 08:41 | Day surgery (SDC) | payer OTHER, SELFPAY ==
[2024-02-24] VITALS (13 sets, daily range): BP systolic 99–167; BP diastolic 66–104; PULSE 66–81; RESP 14–16; TEMP 36.3–36.6; O2SAT 68–99; BMI 27.3
--- OUTSIDE RECORDS SUMMARY | 2024-02-24 08:44 | XMS_ITS | Continuity of Care Document ---
Author Name [facility] Organization [facility] Care Team Providers Care Hatchery Attendant Name Role Phone [facility] Unavailable Unavailable Medications Combined list of outpatient [...] INHALATION, TEVA [place], 8.5 g CANISTER Active [id number] 2023 17 Pharmac y Data Transac tion Service Facilit y WIXELA INHUB (fluticason e propionate/ salmeterol xinafoate), 250-50 MCG, BLST W/DEV, INHALATION, MYLAN, 60 ea. BLIST PACK Active [id number] 2023 180 Pharmac y Data Transac tion Service Facilit y WIXELA INHUB (fluticason e propionate/ salmeterol xinafoate), 250-50 MCG, BLST W/DEV, INHALATION, MYLAN, 60 ea. BLIST PACK Active [id number] 2023 180 Pharmac y Data Transac tion Service Facilit y WIXELA INHUB (fluticason e propionate/ salmeterol xinafoate), 250-50 MCG, BLST W/DEV, INHALATION, MYLAN, 60 ea. BLIST PACK Active [id number] 2022 60 Pharmac y Data Transac tion Service Facilit y Social History Combined list of available smoking, tobacco, and other social history from Department of Defense and Veterans Affairs facilities. Social History Type Response Date Comment Sourc e This section is an empty social history section. [employer]
--- OUTSIDE RECORDS SUMMARY | 2024-02-24 08:44 | XMS_ITS | Clinical Summary ---
Author Name Unknown Organization [facility] Address [place], [place] [address] Care Team Providers Care Guitar Maker Hand Name Role Phone Dora Oconnor DO Primary Care Provider [phone] Allergies No known active allergies Medications Medication [...] times daily. 60 Each 11 11/13/2023 Active niacinamide (NICOTINAMIDE MISC) As directed. 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 Overview: Melanoma in situ, left shoulder, s/p shave 10/27/2018, s/p reexcision 11/2018 History of nonmelanoma skin cancer 2021 Overview: Per patient, history of a few NMSCs: BCC, left forehead, 05/2019, by Mary Velazquez PA-C BCC, right yazdanism, 2018 BCC, right upper chest, 10/27/2018 BCC, left upper chest, 10/27/2018 Skin cancer 08/18/2018 Overview: 02/11/24: left yazdanism, nBCC: Needs Mohs 06/08/19 left forehead, nBCC, Mohs Jackson 09/06/19 08/13/18 right upper chest, s/n BCC ED&C treated 12/08/18 DAVID ThompsonC 08/13/18 left upper chest, s/n BCC, ED&C treated 12/08/18 Mary Velazquez PA-C 08/13/18 right yazdanism, nBCC, MOHS 11/24/18 Elliott Jackson MD Routine adult health maintenance 12/02/2014 Overview: Colonoscopy 11/2014 diverticulosis repeat in 10 years Vitamin D deficiency 04/08/2012 Unspecified asthma(493.90) 09/22/2007 Overview: Allergy induced, animal allergy Encounters Date Type Department Care Team Description 02/17/2024 2:00 PM CDT Preop Visit [facility] [address] [place] [address] Keila Cagle PA Preoperative Exam (02/24/24/Rt knee fluid drainage /Dr. Edmond/[facility] ) 02/17/2024 Travel 02/17/2024 Telephone [facility] [address] [address] Lynette Lee MD Abnormal Lab Results 02/11/2024 9:40 AM CDT Office Visit [facility] [address] [address] Lynette Lee MD Derm Problem 02/11/2024 Travel 02/06/2024 Orders Only [facility] Scanner 1 scan: (1-Ord) [facility], KNEE, 02/06/2024 from Last 3 Months Immunizations Name Administration Dates Next Due AMB Influenza, IIV4 PF (=>6 mos Flulaval,Fluzone Fluarix)(Flu Clinic Only) 08/16/2020 COVID-19 vaccine (Fishidy NTech 30mcg/0.3mL) PF, MDV 02/13/2021,01/23/2021 Influenza, IIV3 (Age >=3 years) 09/03/20 08,09/22/2007,09/10/2006,2004,08/10/2004 Influenza, IIV4 10/09/2015 Pneumococcal Conj 20-valent (Prevnar 20) 05/29/2022 Tdap 06/24/2018,09/22/2007 Zoster (Shingrix-RZV, recombinant) 12/06/2019, Family History Medical History Relation Name Comments No Known Problems Daughter Other Father ulcerative coli tis Psychiatric illness Father Depressi on-- later in life Skin cancer Father Heart Disease Maternal Grandmother Stroke Maternal Grandmother Cancer-breast Mother 09-27-08 Maste ctomy, age 71 Migraines Mother hx of [...] of Communication with Friends and Fami ly 0 02/17/2024 Financial Resource Strain Answer Date R ecorded Difficulty of Paying Living Expenses 3 02/17/2024 Difficulty of Paying Living Expenses Not on file 02/17/2024 Food Insecurity Answer Date Recorded Worried About Running Out of Food in the Last Ye ar 1 02/17/2024 Transportation Needs Answer Date Record ed Lack of Transportation (Medical) 1 02/17/2024 Housing Stability Answer Date Recorded Unable to Pay for Housing in the Last Year 1 02/17/2024 Sex and Gender Information Value Date Recorded [...] Sign Reading Time Taken Comments Blood Pressure 134/84 02/17/2024 2:10 PM CDT Pulse 70 02/17/2024 2:10 PM CDT Temperature 36.7 ??C (98.1 ??F) 02/17/2024 2:10 PM CD T Respiratory Rate 16 02/17/2024 2:10 PM CDT Oxygen Saturation 98% 02/17/2024 2:10 PM CDT Inhaled Oxygen Concentration - - Weight 69.9 kg (154 lb) 02/17/2024 2:10 PM CDT Height 160.3 cm (5' 3.11) 02/17/2024 2:10 PM CD T Body Mass Index 27.18 02/17/2024 2:10 PM CDT Plan of Treatment Health Maintenance Due Date Last Done Comments HIV for age 15-65 1977 COVID-19 vaccine series ( season) 2023 03/22/2022, 02/13/2021, 01/23/2021 Mammogram for age 45-75 05/29/2024 05/29/20 23, 08/27/2021, 08/21/2020, Additional history exists Influenza for age 50-64 06/20/2024 08/16/20 20, 10/09/2015, 09/03/2008, Additional history exists Depression screening for age 12+ 11/13/2024 11/13/2023, 12/20/2020, 07/02/2019, Additional history exists Colonoscopy through age 75 12/02/2024 12/02/2014, BMI (ht and wt on same day) for age 18+ 02/16/2025 02/17/2024, 11/13/2023, 05/29/2022, Additional history exists Pap test for age 21-65 12/20/2025 , [...] Procedure Name Priority Date/Time Associated Diagnosis Comments PATH TISSUE EXAM Routine 02/11/2024 9:55 AM CDT Neoplasm of uncertain behavior of skin SCAN-MRI INTERPRETATION 02/06/20 12:00 AM CDT LIPID PANEL W REFLEX MEASURED LDL Routine 11/13/2023 10:21 AM OUTSOLE TACKER Screening for lipid disorders XR MAMMO MADDY BILAT SCREEN Routine 05/29/2023 11:43 AM CDT Encounter for screening mammogram for malignant neoplasm of breast VEHICLE PAINTER THIN PREP PAP SCREEN IMAGED Routine 12/20/2020 10:17 AM OUTSOLE TACKER Pap smear for cervical cancer screening ANTI HCV Routine 07/02/2019 9:23 AM CDT Need for hepatitis C screening test from Last 3 Months or Most Recently Relevant to Health Maintenance Results * PATH TISSUE EXAM (02/11/2024 9:55 AM CDT) Case Report Pathology Report ?Case: [id number] ? Authorizing Provider: ??Lynette Lee, ??Collected: ? 02/11/2024 0955 ? MD ? Ordering Location: ? [facility] ? Received: ?02/11/2024 1207 ? Clinic ? Pathologist: ? Brenda Mario MD ? Specimen: ?Skin Shave, Left yazdanism ? 02/14/2024 8:01 AM CDT [facility] Final Diagnosis A) SKIN, LEFT TENRIISM, BIOPSY: 1. Basal cell carcinoma, nodular type: ?? a. Perineural invasion: Absent ?? b. Margins: Positive 02/14/2024 8:01 AM T [facility] Clinical Information Rule out BCC 02/14/2024 8:01 AM CDT [facility] Gross Description A) Received in formalin, labeled with the patient's name and left yazdanism, is a 1.3 x 0.7 x 0.1 cm skin biopsy. There is a 7 x 0.4 x 0.1 cm flat reynoso lesion. The specimen is inked red, trisected and entirely submitted in one cassette. TLF 02/12/2024 02/14/2024 8:01 AM CDT [facility] Microscopic Description The final diagnosis is based on microscopic examination of appropriate sections of all specimens. 02/14/2024 8:01 AM CDT [facility] Additional Information Interpreted at [facility] [address] [facility] [address] [address] 02/14/2024 8:01 AM CDT [facility] Other SPECIMEN FROM SKIN / Unknown Non-Blood / Unknown 02/11/2024 9:55 AM CDT 02/11/2024 12:07 PM CDT Lynette Lee MD PATHOLOGY/CYT OLOGY Performing Organization Address City/State/[facility] Co de Phone Number [facility] [address] [place] [address], * SCAN-MRI INTERPRETATION (02/06/2024 12:00 AM CDT) Anatomical Region Laterality Modality Other Scanner OTHER * (ABNORMAL) LIPID PANEL W REFLEX MEASURED LDL (11/13/2023 10:21 AM OUTSOLE TACKER) CHOLESTEROL,TOTAL 251(H) 100 - 199 mg/dL 11/13/2023 9:55 PM OUTSOLE TACKER [facility] TR[facility] LABORAT[facility] Comment: Cholesterol, Total Reference Ranges Desirable <200 mg/dL Borderline 200-239 mg/dL High >=240 mg/dL TRIGLYCERIDES 55 <150 mg/dL 11/13/2023 9:55 PM OUTSOLE TACKER [facility] LAB[facility] HDL CHOLESTEROL 111 >40 mg/dL 9:55 PM OUTSOLE TACKER [facility] LAB[facility] NON-HDL CHOLESTEROL 140 <145 mg/dl 11/13/2023 9:55 PM OUTSOLE TACKER [facility] TRAL LABORAT[facility] CHOL/HDL RATIO 2.26 <4.50 11/13/2023 9:55 PM OUTSOLE TACKER [facility] TRAL LABORAT[facility] LDL CHOLESTEROL 129 <=130 mg/dL 11/13/2023 9:55 PM OUTSOLE TACKER [facility] LAB[facility]ATORY VLDL CHOLESTEROL 11 <=30 mg/dL 11/13/2023 9:55 PM OUTSOLE TACKER [facility] PROVIDER ORDERED STATUS RANDOM 11/13/2023 9:55 PM OUTSOLE TACKER [facility] TR[facility] LAB[facility]ORY Blood BLOOD SPECIMEN / Unknown Venipuncture / Unknown 11/13/2023 10:21 AM OUTSOLE TACKER 11/13/2023 10:23 AM OUTSOLE TACKER Janet JOVEL CHEMISTRY [facility] [address] [place] [address], [place] * XR MAMMO MADDY BILAT SCREEN [...] For Patients: As a result of the Century Cures Act, medical imaging exams and procedure reports are released immediately into your electronic medical record. You may view this report before your referring provider. If you have questions, please contact your health care provider. XR MAMMO MADDY BILAT SCREEN [[id number]] CLINICAL HISTORY: ??This is an asymptomatic 63 y.o. patient. INDICATION FOR EXAM: Mammogram Screening. TECHNIQUE: CC & MLO views were obtained. ??This study was evaluated with the assistance of Computer-Aided Detection. Breast Tomosynthesis was used in interpretation. COMPARISON FILM: Yes 08/27/21 [facility] FINDINGS: ??The breasts have scattered areas of fibroglandular density. There are no dominant masses, suspicious micro calcifications or areas of architectural distortion. Dora Oconnor DO MAMMO * VEHICLE PAINTER THIN PREP PAP SCREEN IMAGED (12/20/2020 10:17 AM OUTSOLE TACKER) Case Report Gynecologic Cytology Report ? Case: [id number] ? Authorizing Provider: ??Rosaura Su, ??Collected: ? 12/20/2020 1017 ? PA ? Ordering Location: ? [facility] ?? Received: ?12/20/2020 1049 ? Clinic ? First Screen: ?Nii Hawthorne ? Specimen: ?VEHICLE PAINTER ThinPrep Vial Screening, Cervical ? 12/27/2020 3:06 PM OUTSOLE TACKER [facility] INTERPRETATION/ RESULT NEGATIVE FOR INTRAEPITHELIAL LESION OR MALIGNANCY (NIL) (none) 12/27/2020 3:06 PM OUTSOLE TACKER [facility] IMEN ADEQUACY Satisfactory for evaluation Endocervical component present Scant cellularity 12/27/2020 3:06 PM OUTSOLE TACKER [facility] HPV REQUEST HPV and PAP 12/27/2020 3:06 PM OUTSOLE TACKER [facility] Date of LMP postmenopausal 3:06 PM OUTSOLE TACKER [facility] Last Pap Date 01/29/17 12/27/2020 3:06 PM OUTSOLE TACKER [facility] Last Pap Result First Pap/Unknown 3:06 PM OUTSOLE TACKER [facility] Abnormal Pap or [place] Bx in last 5 years No 12/27/2020 3:06 PM OUTSOLE TACKER [facility] Menstrual Status Postmenopausal 12/27/2020 3:06 PM OUTSOLE TACKER [facility] [place] Bx Done Today No 12/27/2020 3:06 PM OUTSOLE TACKER [facility] Additional Information None given 12/27/2020 3:06 PM OUTSOLE TACKER [facility] Comment: Cytology is screened at [facility] Central Laboratory - [address], [place] [address] and [facility] - [address], [place] [address] and [facility] - [address] [place] [address] Interpreted at [facility] - [address], [place] [address] Automated Review Successful 12/27/2020 3:06 PM OUTSOLE TACKER [facility] Comment:Specimen processed s uccessfully by automated director ehs device, ThinPrep Imaging System, [employer] ANCILLARY TESTING VEHICLE PAINTER HPV Ordered, Please see separate report 12/27/2020 3:06 PM OUTSOLE TACKER [facility] [employer] LABORATORY-C ENTRAL LABORATORY Note The pap test is [...] pre-malignant and malignant lesions. 12/27/2020 3:06 PM OUTSOLE TACKER [facility] [employer] LABORATORY-C ENTRAL LABORATORY Other (Cervical) Non-Blood / Unknown 12/20/2020 10:17 AM OUTSOLE TACKER 12/20/2020 10:49 AM OUTSOLE TACKER Rosaura JOVEL PATHOLOGY/CYT OLOGY [facility] [address] [place] [address], [place] * ANTI HCV (07/02/2019 9:23 AM CDT) HEPATITIS C ANTIBODY Non-React arpan Non-React arpan 07/02/2019 6:13 PM CDT [facility] [employer] LAB[facility]ATORY-[facility] Comment:Antibodies to HCV no t detected; does not exclude the possibility of exposure to HCV. Blood BLOOD SPECIMEN / Unknown Venipuncture / Unknown 07/02/2019 9:23 AM CDT 07/02/2019 9:23 AM CDT Rosaura JOVEL SEND OUTS [facility] [address] [place] [address], [place] from Last 3 Months or Most Recently Relevant to Health Maintenance Care Teams Guitar Maker Hand Relationship Specialty Start Date End Date Dora Oconnor DO [address] [place] [address] PCP - General Family Practice 05/29/22
--- OUTSIDE RECORDS SUMMARY | 2024-02-24 08:44 | XMS_ITS | Clinical Summary ---
Author Name Unknown Organization [facility] Address [address] [place] [address] Care Team Providers Care Senior Software Engineer Analytics Name Role Phone Rosaura Su PA-C Primary Care Provider Un available Source Comments You are receiving this document as you are listed as the primary care provider,follow-up provider, or the patient has been referred to you for consultation.This is in compliance with the Medicare and[facility] EHR Incentive Program,which states Providers who transition their patient to another setting of careor provider of care or refers their patient to another provider of care shouldprovide summary care record for each transition of care or referral. [facility] Allergies No known active allergies [...] 05/2019, by Mary Velazquez PA-C BCC, right restorationism, 2017 BCC, right upper chest, 10/27/2018 BCC, left upper chest, 10/27/2018 Social History Tobacco Use Types Packs/Day Years Used Date Smoking Tobacco: Never Assessed Sex and Gender Information Value Date Recorded Sex Assigned at Not on file Gender Identity Not on file Sexual Orientation Not on file Plan of Treatment Upcoming Encounters Date Type Department Care Team (Late st Contact Info) Description 03/10/2024 10:15 AM CDT Appointment [facility] [address] [place], [facility] [address] [place] [address] [place] [address] [facility] [address] [place] [place] [id number] Health Maintenance Due Date Last Done Comments Cervical Cancer Screening Due 1960 Colon Cancer Screening Plan Due 1962 Hep C Screening (Preventive Services) 1962 HIV Screening (Preventive Services) 1978 Adult Preventive Visit 1980 Cholesterol 2007 Mammogram 08/27/2022 08/27/2021 COVID-19 Vaccine ( season) 2023 02/13/2021, 01/23/2021 Influenza (Season Ended) 06/20/202408/16/ 020, 10/09/2015, 09/03/2008, Additional history exists DTaP/Tdap/Td (3 - [...] Recently Relevant to Health Maintenance Care Teams Senior Software Engineer Analytics Relationship Specialty Start Date End Date Rosaura Su PA-C PCP - General Physician Telephone Services Sales Representative 05/01/21
--- OUTSIDE RECORDS SUMMARY | 2024-02-24 08:44 | XMS_ITS | Data Portability ---
Author Name Unknown Address [address] [place] [address] Phone [phone] Organization [place] - [facility], [place] [facility] Address [address] [place] [address] Care Team Providers Care Ski Technician Name Role Phone DENYS CEDENO Referring Provider [phone] Assessment Encounter Date Assessment Date Assessment LastModified [...] will be considered. Fabrication of a Mandibular ekap-apprupmgit-yyc l appliance to address patient's diagnoses would [...] term goals and has nearly met all senior living goals. Taper to independent management and D/C [...] recorded. Referral physical therapist referral 2015 [address] [facility], [address], [place], [address], 6 04:40:54 Procedures None recorded. Surgeries None recorded. Imaging XR, orthopantog luciana 2015 0[address] [facility], [address], [place], [address], 6 04:40:54 Medication Orders None recorded. Patient [...] due to improved joint strength and stability? Ramer with HEP and self care strategies to [...] due to improved joint strength and stability? Ramer with HEP and self care strategies to [...] due to improved joint strength and stability? Ramer with HEP and self care strategies to [...] due to improved joint strength and stability? Ramer with HEP and self care strategies to [...] due to improved joint strength and stability? Ramer with HEP and self care strategies to [...] due to improved joint strength and stability? Ramer with HEP and self care strategies to manage symptoms? Pain free chewing with moderately hard diet 80% of the time [email or web address] Not available 08/29/2016 09:38:39 Patient Instructions Encounter Date Encounter Id Patient Instructions Last Modified By Organization Details Last Modified Time 10/23/2016 [id number] Plan: Continue independently, RTC as needed only. D/C PT if she doesn't return. [email or web address] Not available 10/23/2016 18:18:12 09/16/2016 [id number] Plan: One more session of ionto 80 [...] jaw. [email or web address] Not available 09/05/2016 09:51:53 09/02/2016 [id number] Plan: Check neck next, increase to 60 mAmin with ionto. Check exercises, mobilize jaw. [email or web address] Not available 09/02/2016 10:07:28 08/28/2016 [id number] Plan: Primary MD signature: Date: [email or web address] Not available 08/28/2016 10:10:21 07/31/2016 [id number] Self Care for TMD [id number] Not available 10/05/2016 04:40:54 Reason for Referral Referring Physician: Kenton Allen, Pain Management, Encounter Date: 07/31/2016 Results Created Date Observation Date Name Description Value Unit Range Abnormal Flag LastModifiedBy Organization Detail LastModifiedTime Result Notes None recorded. Problems Name Status Onset Date Resolution Date Notes Provider Name and Address Organization Details Recorded Time Neck pain Active [facility], [facility] 07/31/2016 15:53:04 Myofascial pain Active [facility] null, [facility] 07/31/2016 15:53:05 Arthralgia of temporomandibular joint Active [facility] null, [facility] 07/31/2016 15:54:59 Articular disc disorder of temporomandibular joint Active [facility] null, [facility] 07/31/2016 15:55:00 Problem Notes None recorded. Procedures Surgical History Date Name Laterality Status Provider Name and Address Organization Details Recorded Time 10/23/19 17 26573: Therapeutic Exercise completed Christel licona [facility] 10/23/2016 18:15:04 10/23/19 17 98364: Therapeutic Activities completed Christel licona [facility] 10/23/2016 18:15:15 09/16/20 16 26698: Iontophoresis completed Christel licona [facility] 09/16/2016 10:02:15 09/16/20 16 69403: Therapeutic Exercise completed Christel licona [facility] 09/16/2016 09:37:24 09/16/20 16 38975: Manual Therapy completed Christel licona [facility] 09/16/2016 09:37:24 09/09/20 16 21933: Iontophoresis completed Christel lciona [facility] 09/09/2016 09:49:36 09/09/20 16 30833: Therapeutic Exercise completed Christel licona [facility] 09/09/2016 09:33:04 09/09/20 16 39003: Manual Therapy completed Christel licona [facility] 09/09/2016 09:33:04 09/05/20 16 69284: Iontophoresis completed Christel licona [facility] 09/05/2016 09:50:03 09/05/20 16 05464: Therapeutic Exercise completed Christel licona [facility] 09/05/2016 09:43:29 09/05/20 16 91177: Manual Therapy completed Christel licona [facility] 09/05/2016 09:50:07 09/02/20 16 89100: Iontophoresis completed Christel licona [facility] 09/02/2016 09:51:11 09/02/20 16 87516: Therapeutic Exercise completed Christel licona [facility] 09/02/2016 09:37:37 09/02/20 16 10176: Manual Therapy completed Christel licona [facility] 09/02/2016 13:35:11 08/28/20 16 54882: PT Evaluation completed Christel licona [facility] 08/28/2016 11:10:25 08/28/20 16 43105: Iontophoresis completed Christel licona [facility] 08/28/2016 17:50:03 08/28/20 16 25915: Therapeutic Exercise completed Christel licona [facility] 08/28/2016 10:10:23 08/28/20 16 14937: Manual Therapy completed Christel licona [facility] 08/28/2016 17:50:17 [...] Details Last Updated DateTime 6 161.29 cm 38071.9 3 g 24.4 kg/m2 68 /min 117 mm[Hg] 72 mm[Hg] Alma licona [facility] 6 10:13:09 Date Recorded Heart rate Systolic blood pressure Diastolic blood pressure Provider Name and Address Organization Details Last Updated DateTime 07/31/2016 82 /min 132 mm[Hg] 79 mm[Hg] Janet licona [facility] 07/31/2016 10:50:40 Social History Question Answer Notes LastModified by Organizat ion Details LastModified Time Tobacco Smoking Status Never Smoker Janet licona [facility] 07/31/2016 10:35:17 [...] available 07/31/2016 What Is Your Occupation? [employer] Information not available 07/31/2016 Marital Status Informatio [...] History Condition Response Coronary Artery Disease N Gout N Other N MRSA N Head Trauma/Injury N Glaucoma N Lung Disease N Depression N COPD N Pneumonia N Pacemaker N Obstructive Sleep Apnea N Anxiety Disorder N Muscle, Joint, or Bone Problems N Autoimmune disease N Vision or Eye Problems N Arthritis N Acid Reflux (GERD) N Cancer N Stroke N Back Injury N High Cholesterol N Liver Disease N Organ Transplant N Rheumatoid Arthritis N Fibromyalgia N Headaches N Kidney Disease N Allergies/Hayfever N Parkinson's Disease N Post traumatic stress disorder (PTSD) N Migraines N Brain Tumors N Anemia N Multiple Sclerosis N Heart Attack ([place]) N Stomach Ulcers N Diabetes N Bleeding Disorder N Seizures/Epilepsy N Tuberculosis N AIDS/HIV N Dementia N Asthma N Substance Abuse N Vertigo N Sleep Disorder N Hepatitis N Heart Disease N Neuropathy N Pulmonary Embolism N Hypertension N Osteoporosis N Gynecological HistoryNo gynecological history recorded. Obstetrics History GPAL:G 0 P 0 0 0 0 Past Encounters Encounter ID Performer Location Encounter Start Date Encounter Closed Date Diagnosis/Indication Diagnosis SNOMED-CT Code [id number] Florence Mane DDS [facility] [address] [place] [address] 07/31/2016 10:12:52 08/02/2016 00:41:35 Arthralgia of temporomandibular joint 18335983 Articular disc disorder of temporomandibular joint 39759044 Myofascial pain 34475319 9 Neck pain [id number] Christel [address] [place] [address] [address] 08/28/2016 10:07:29 08/29/2016 12:11:19 Arthralgia of temporomandibular joint 14719942 Myofascial pain 75462573 9 Articular disc disorder of temporomandibular joint 79484306 Neck pain 65456027 [id number] Christel Villa [place] [address] [place] [address] 09/02/2016 09:25:29 09/03/2016 10:09:08 Arthralgia of temporomandibular joint 20006083 Myofascial pain 38453077 9 Articular disc disorder of temporomandibular joint 10301815 Neck pain 62461840 [id number] Christel Allen [place] [address] [address] 09/05/2016 09:18:04 09/06/2016 09:48:12 Articular disc disorder of temporomandibular joint 14956587 Neck pain 54023397 Myofascial pain 41214186 9 Arthralgia of temporomandibular joint 49398359 [id number] Christel [address] [place] [address] [place] [address] 09/09/2016 09:21:24 09/11/2016 09:51:15 Articular disc disorder of temporomandibular joint 14583770 Neck pain 08246488 Myofascial pain 99740957 9 Arthralgia of temporomandibular joint 82541787 [id number] Christel Allen [place] [address] [address] 09/16/2016 09:24:44 09/17/2016 10:49:42 Articular disc disorder of temporomandibular joint 94765018 Neck pain 02397729 Myofascial pain 21791935 9 Arthralgia of temporomandibular joint 77942197 [id number] Florence Gilliam DDS [facility] [address] [place] [address] 09/16/2016 10:01:46 09/17/2016 09:43:56 Myofascial pain 846277513 Neck pain 61929221 Arthralgia of temporomandibular joint 81072815 Articular disc disorder of temporomandibular joint 79354410 [id number] Christel Allen [facility] [address] [place] [address] 10/23/2016 09:35:02 10/24/2016 15:17:07 Arthralgia of temporomandibular joint 36311666 Myofascial pain 05711896 9 Articular disc disorder of temporomandibular joint 34421547 Neck pain 27313768 Health Concerns Section Related Observation LastModified by Organization Detai ls LastModified Time None Recorded Concern Status LastModified by Organization Details LastModified Time None Recorded Advance Directives Directive None Recorded Payers Encounter Date Sequence Insurance Name Policy Number Policy Albarado Covered Member ID Albarado Member ID Guarantor Name 10/23/2016 1 [place] [id number] Bhavin F Strike [id number] [employer] 09/16/2016 1 [place] [id number] Bhavin F Strike [id number] [employer]akti Strike 09/16/2016 1 [place] [id number] Bhavin F Strike [id number] [employer]akti Strike 09/09/2016 1 [place] [id number] Bhavin F Strike [id number] [employer]akti Strike 09/05/2016 1 [place] [id number] Bhavin F Strike [id number] Bhakti Strike 09/02/2016 1 [place] [id number] Bhavin Quick Strike [id number] Bhakti Strike 08/28/2016 1 [place] [id number] Bhavin Quick Strike [id number] 29 Bhakti Strike 07/31/2016 1 [place] [id number] Bhavin Quick Strike [id number] Bhakti Strike Notes Date Note Type [...] includes physical therapy. BINDU Patel DDS - [facility] 07/31/2016 15:56:10 [...] changes of the TMJ condyles. BINDU Rico [facility] 08/29/2016 09:39:11 [...] pain. Opening still feels tight. Christel licona [facility] 09/02/2016 13:37:06 [...] feel too much farther yet. Christel licona [facility] 09/05/2016 10:10:24 09/09/2016 text/html HPI Notes: Has h ad heat again now as of yesterday. No pain, still having tightness though it seems less tight overall. The lateral resistance exercise seems to have helped improve the balance side to side. Protecting yawning. Christel licona [facility] 09/10/2016 09:31:01 09/16/2016 text/html HPI Notes: Traveling over [facility], had a on Friday. Doing the exercises as much as possible. Can't do tube ex. without hearing noise instantly. 65-70% overall improvement. Still having soreness with eating chewy foods. No difficulty with opening wide. Discomfort/hesitati on with yawning. Neck is feeling less tight. Christel licona [facility] 09/16/2016 17:46:48 [...] Patient denies any locking. BINDU Patel DDS [facility] 09/16/2016 15:53:52 [...] ready to continue independently. BINDU Rico - [facility] 10/23/2016 18:18:42 OBGyn Episode No OBEpisode recorded.
[2024-02-24] MEDS: LACTATED RINGERS 1000 ML 1,000 ML 100 ML IV (09:00)
[2024-02-24] MEDS: SODIUM CHLORIDE 0.9 % (FLUSH) 10 ML SYRINGE IVF (09:05)
[2024-02-24] MEDS: CEFAZOLIN 2 GM INJ IVP (10:40)
--- NOTE | 2024-02-24 11:03 | SUR.OPER ---
PATIENT QUESTIONS ANSWERED SATISFACTORILY PREOPERATIVELY.? PATIENT BROUGHT TO OR #3 PER CART.? Patient positioned supine on OR #3 bed.? The perioperative?team supported arms bilaterally on arm boards.? Final approval of positioning by surgeon.?
--- NOTE | 2024-02-24 11:13 | P.ORPRC_ITS ---
Procedure Note Date of procedure: 02/24/24 Procedure: PREOPERATIVE DIAGNOSIS: Right knee Anthony Hilaria lesion POSTOPERATIVE DIAGNOSIS: Right knee Anthony Hilaria lesion NAME OF OPERATION: Anthony Hilaria lesion incision and drainage SURGEON: Petr Edmond MD [employer]DR[employer] ELECTRICIAN: Sylvia Montalvo PA-C ANESTHESIA: Spinal ESTIMATED BLOOD LOSS: 0 mL COMPLICATIONS: None SPECIMENS: None DRAINS: None PREOPERATIVE ANTIBIOTICS: Ancef 1 gram INDICATIONS: The patient is a 63-year-old with a history of right knee Anthony Hilaria lesion. Operative intervention was offered. The risks, benefits and expected outcomes were discussed in detail. These included but were not limited to: Infection, bleeding, injury to blood vessel or nerve, venous thromboembolism. All questions were answered to their satisfaction. PROCEDURE: Spinal anesthesia was administered. The patient was placed supine on the operating room table. The left lower extremity was prepped and draped in the usual sterile fashion. The limb was exsanguinated with the Jace bandage. The pneumatic tourniquet was inflated to 250 mmHg. A standard anterior, midline incision was utilized. Subcutaneous dissection was sharply taken into the lesion. Serosanguineous fluid was drained. The incision was extended both proximally and distally to cover the full extent of the lesion. The subcutaneous fat was debrided with the curette and rongeur. The wound was irrigated with normal saline via pulse lavage. We then sutured the subcutaneous fat back to the deep fascia with multiple Vicryl sutures. Subcutaneous fat was reapproximated with a Vicryl and skin was closed with a subcuticular Monocryl and glue. The wound was infiltrated with 0.5% Marcaine without epinephrine. A soft dressing was applied. The patient tolerated the procedure well. There were no apparent complications. They were carefully transferred to the hospital bed and taken to the postanesthesia care unit in satisfactory condition. PLAN: The patient will be discharged to home. They may weightbear as tolerates. Range of motion will be unrestricted. They will follow up in the office next week for a wound check.
[2024-02-24] MEDS: BUPIVACAINE 0.5% 30 ML 20 ML INJECTION (11:19)
--- NOTE | 2024-02-24 12:03 | W.ANESCHARGE ---
Anesthesia Charges Start Date/Time Anesthesia Start Date: 02/24/24 Anesthesia Start Time: 10:27 Stop Date/Time Anesthesia Stop Date: 02/24/24 Anesthesia Stop Time: 12:04
[2024-02-24] MEDS: ACETAMINOPHEN 500 MG TABLET 1000 MG PO (12:52)
== END 2024-02-24 14:18 | disposition home or self-care (01) ==
LOC: OR 08:42
PROVIDERS: PCP Physician Assistant; Visit Provider Orthopaedic Surgery
PROC: (CPT 27301; principal; 2024-02-24 10:35)
DX: S80.01XA Contusion of right knee, initial encounter (principal)
CPT/HCPCS: 27301; 01320; A9270; J0665; J0690; J1100; J2250; J2371; J2405; J2704; J3010; J7120

== ENCOUNTER 2024-04-29 16:15 | Outpatient (RCR) | payer OTHER, SELFPAY | END 2024-06-03 14:00 | disposition home or self-care (01) | PROVIDERS: PCP Physician Assistant; Visit Provider Physician Assistant | DX: Z98.890 Other specified postprocedural states (principal); M25.561 Pain in right knee; Z51.89 Encounter for other specified aftercare | CPT/HCPCS: 97110; 97116; 97140; 97161 ==